=== PATIENT | female | born 1945 | race Caucasian/White ===

== ENCOUNTER 2017-02-12 17:51 | Observation (INO) | payer OTHER ==
[~2017-02-12] VITALS: Ht 144.8 cm; Wt 73.2 kg
[~2017-02-12 17:51] MED LIST: HYDROCODONE
[2017-02-12 17:57] VITALS: BP 165/85
[2017-02-12] MEDS ORDERED: ASPIRIN 81 MG TAB.CHEW PO ONE (18:00)
--- NOTE | 2017-02-12 18:05 | NUR ---
Patient ambulated to bed 03.
--- NOTE | 2017-02-12 18:08 | NUR ---
Dr. Goldstein evaluating patient at bedside.
--- NOTE | 2017-02-12 18:14 | NUR ---
71/F C/O LEFT SIDED ANTERIOR WALL CHEST PAIN RADIATING LEFT SCAPULA AND LUE BURNING PAIN 01/01. DENIES N/V/D; SKIN IS PINK/WARM/DRY; AAOX4 WITH EVEN AND STEADY GAIT; LUNGS CLEAR BL; HR EVEN AND REGULAR; PT DENIES ANY FEVER, SOB, OR COUGH AT THIS TIME; VSS; PATIENT POSITIONED FOR COMFORT; HOB ELEVATED; BEDRAILS UP X2; BED DOWN. ER MD MADE AWARE OF PT STATUS.
[2017-02-12 18:17] LABS: BASOPHILS # (AUTO) 0.1 K/uL (0.00-0.22); BASOPHILS % (AUTO) 1.8 % (0.0-2.0); EOSINOPHILS # (AUTO) 0.3 K/uL (0-0.4); EOSINOPHILS % (AUTO) 3.2 % (0.0-4.0); HEMATOCRIT 36.7 % (36-48); HEMOGLOBIN 11.9 g/dL (12.0-16.0); LYMPHOCYTES # (AUTO) 2.3 K/uL (2.5-16.5); LYMPHOCYTES % (AUTO) 29.2 % (20.5-51.1); MEAN CORPUSCULAR HEMOGLOBIN 29 pg (27-31); MEAN CORPUSCULAR HGB CONC 33 g/dL (33-37); MEAN CORPUSCULAR VOLUME 90 fL (80-94); MONOCYTES # (AUTO) 0.5 K/uL (0.8-1.0); MONOCYTES % (AUTO) 5.9 % (1.7-9.3); NEUTROPHILS # (AUTO) 4.7 K/uL (1.8-7.7); NEUTROPHILS % (AUTO) 59.9 % (42.2-75.2); PLATELET COUNT (AUTO) 345 K/uL (140-450); RED BLOOD CELL COUNT(AUTO) 4.09 MIL/uL (4.20-5.40); RED CELL DISTRIBUTION WIDTH 13.9 % (11.6-13.7); WHITE BLOOD COUNT (AUTO) 7.9 K/uL (4.8-10.8)
--- NOTE | 2017-02-12 18:22 | NUR ---
XRAY at bedside.
[2017-02-12 18:30] LABS: ANION GAP 11.6 (8-16); CALCIUM 9.1 mg/dL (8.5-10.1); CARBON DIOXIDE 29.1 mmol/L (21-32); CREATININE 0.9 mg/dL (0.6-1.3); POTASSIUM 4.7 mmol/L (3.5-5.1)
[2017-02-12 18:36] LABS: ALBUMIN 4.2 g/dL (3.4-5.0); TOTAL BILIRUBIN 0.2 mg/dL (0.0-1.0); TOTAL PROTEIN, SERUM 7.7 g/dL (6.4-8.2)
[2017-02-12 18:38] LABS: PARTIAL THROMBOPLASTIN TIME 25.2 secs (22-35.6); PROTHROMBIN TIME 10.4 secs (10.8-13.4)
[2017-02-12] MEDS ORDERED: MORPHINE SULFATE 4 MG/ML SYR IVP ONE (18:45)
[2017-02-12] MEDS ORDERED: SIMV20TA1 PO (19:04)
[2017-02-12] MEDS ORDERED: TRAZ-286 PO (19:04)
[2017-02-12] MEDS ORDERED: METF500T64 PO (19:04)
[2017-02-12] MEDS ORDERED: ASPI-1379 PO (19:04)
[2017-02-12] MEDS ORDERED: TEJOCOTE ROOT (19:04)
[2017-02-12] MEDS ORDERED: [UNRECOGNIZED DRUG - CODE] PO (19:04)
[2017-02-12] MEDS ORDERED: ONDANSETRON 4 MG/2 ML VIAL IVP PRN (19:10)
[2017-02-12] MEDS ORDERED: INSULIN LISPRO SLIDING SCALE 100 UNITS/ML VIAL SUBQ PRN (19:10)
[2017-02-12] MEDS ORDERED: ACETAMINOPHEN 325 MG TAB PO PRN (19:10)
[2017-02-12] MEDS ORDERED: NITROGLYCERIN 0.4 MG TAB SL ONE (19:10)
--- NOTE | 2017-02-12 19:16 | NUR ---
GOT REPORT ETHEL CRAIG RN. PT. RESTING IN BED, NO S/SX OF DISTRESS AT THIS TIME.
--- NOTE | 2017-02-12 19:16 | NUR ---
Pt report given to PIN. Transfer of care at this time.
--- NOTE | 2017-02-12 19:20 | NUR ---
Patient will be admitted to care of [facility]. Admited to TELEMETRY. Will go to [id number]. Belongings list completed. Report to MARY HILL, REPORT GIVEN BY MARY CRAIG.
[2017-02-12 19:25] VITALS: BP 133/75
--- NOTE | 2017-02-12 19:25 | NUR ---
ADMITTED A 71 YEARS OLD FEMALE TO THE TELE UNIT. PATIENT RESTING IN BED, AWAKE ALERT ORIENTED X4. NO S/S OF ACUTE DISTRESS NOTED, DENIES PAIN AT THIS TIME. TELE MONITOR PLACED ON PATIENT. IV SITE CLEAN AND DRY, FLUSHED WITH NS, PATENT. PLAN OF ACRE DISCUSSED, VERBALIZED UNDERSTANDING. CALL LIGHT WITHIN REACH, SAFETY MEASURE ENSURED, WILL CONTINUE TO MONITOR.
--- NOTE | 2017-02-12 19:58 | NUR ---
NITROSTAT 0.4MG NOT ADMINISTERED, PATIENT DENIES CHEST PAIN. MADE CHARGE NURSE AWARE.
[2017-02-12] MEDS ORDERED: DEXTROSE 50% 50 ML SYR IVP PRN (20:15)
--- NOTE | 2017-02-12 20:22 | NUR ---
PM MEDICATIONS GIVEN, PATIENT TOLERATED WELL.
[2017-02-12] MEDS ORDERED: METOPROLOL 25 MG TAB PO ONE (21:00)
[2017-02-12] MEDS ORDERED: SIMVASTATIN 20 MG TAB PO SCH (21:00)
[2017-02-12] MEDS: BLOOD GLUCOSE MONITORING 1 DEV DEV FS SCH ×2 (21:00→21:43)
--- NOTE | 2017-02-12 21:51 | NUR ---
PATIENT REFUSED HUMALOG, EDUCATION PROVIDED TO THE PATIENT, PATIENT STILL REFUSED.
[2017-02-12] MEDS: MORPHINE SULFATE 2 MG/ML SYR IVP PRN (23:02)
[2017-02-13] VITALS: BP 132/75
--- NOTE | 2017-02-13 00:55 | NUR ---
[employer] SALES REPRESENTATIVE REPORTED PATIENT HEART RATE 41 BPM AT 0035. ASSESSED PATIENT AT BEDSIDE, NO S/S OF CHANGE OF CONSCIOUSNESS, NO CHANGE OF MENTAL STATUS NOTED, BP 131/70, HR 55. PATIENT DENIES DIZZINESS. APPLIED SCD ON BOTH LOWER EXTREMITIES. WILL CONTINUE TO MONITOR.
--- NOTE | 2017-02-13 02:11 | NUR ---
PATIENT ASLEEP IN BED, NO S/S OF ACUTE DISTRESS NOTED, RESPIRATION EVEN AND UNLABORED, WILL CONTINUE TO MONITOR
[2017-02-13 02:16] LABS: HEMATOCRIT 35.9 % (36-48); HEMOGLOBIN 11.7 g/dL (12.0-16.0); MEAN CORPUSCULAR HEMOGLOBIN 29 pg (27-31); MEAN CORPUSCULAR HGB CONC 33 g/dL (33-37); MEAN CORPUSCULAR VOLUME 90 fL (80-94); PLATELET COUNT (AUTO) 321 K/uL (140-450); RED BLOOD CELL COUNT(AUTO) 3.98 MIL/uL (4.20-5.40); WHITE BLOOD COUNT (AUTO) 7.6 K/uL (4.8-10.8)
[2017-02-13 02:26] LABS: ANION GAP 10.7 (8-16); CALCIUM 9.1 mg/dL (8.5-10.1); CARBON DIOXIDE 30.3 mmol/L (21-32); CREATININE 0.8 mg/dL (0.6-1.3)
[2017-02-13 02:36] LABS: EOSINOPHILS % (MANUAL) 4 % (0-4); LYMPHOCYTES % (MANUAL) 27 % (20-46); MONOCYTES % (MANUAL) 4 % (5-12); NEUTROPHILS % (MANUAL) 65 (43-65)
[2017-02-13 02:40] LABS: CREATINE KINASE MB 0.9 ng/mL (0-3.6)
[2017-02-13 04:00] VITALS: BP 135/63
--- NOTE | 2017-02-13 04:55 | NUR ---
MADE ROUNDS, PATIENT ASLEEP IN BED, NO S/S OF ACUTE DISTRESS NOTED, CALL LIGHT WITHIN REACH, SAFETY MEASURE ENSURED, WILL CONTINUE TO MONITOR.
[2017-02-13] MEDS: BLOOD GLUCOSE MONITORING 1 DEV DEV FS SCH ×2 (06:59→11:31)
--- NOTE | 2017-02-13 07:25 | NUR ---
ENDORSED PLAN OF CARE TO DAY RN. PATIENT IS IN STABLE CONDITION.
--- NOTE | 2017-02-13 07:30 | NUR ---
RECEIVED REPORT FROM NIGHT NURSE, PT IS AAOX4, ON ROOM AIR, IV TO LEFT AC 20G SALINE LOCK PATENT AND INTACT. SKIN INTACT, PT STATES NO CHEST PAIN AT THIS TIME. INITIAL ASSESSMENT COMPLETED, REVIEWED PLAN OF ACRE WITH PT, PT VERBALIZED UNDERSTANDING, ALL SAFETY PRECAUTIONS MET, ALL NEEDS MET. WILL CONTINUE TO MONITOR.
[2017-02-13 07:49] VITALS: BP 134/75
[2017-02-13] MEDS ORDERED: metFORMIN 500 MG TAB PO SCH (08:00)
--- NOTE | 2017-02-13 08:06 | NUR ---
DUE MEDICATIONS GIVEN, PT TOLERATED WELL, PT C/O PAIN 410, MEDICATED PER MD ORDERS. ALL NEEDS MMET. WILL CONTINUE TO MONITOR.
[2017-02-13] MEDS: MORPHINE SULFATE 2 MG/ML SYR IVP PRN (08:10)
[2017-02-13] MEDS ORDERED: ASPIRIN 325 MG TAB PO SCH (09:00)
[2017-02-13] MEDS ORDERED: LISINOPRIL 5 MG TAB PO SCH (09:00)
--- NOTE | 2017-02-13 09:00 | NUR ---
TEMP OF 100.6, PLACED ICE PACKS ON ARMPIT. WILL REASSESS TEMP.
--- NOTE | 2017-02-13 09:41 | NUR ---
PATIENT HAS BEEN SCREENED AND CATEGORIZED MODERATE NUTRITION RISK. PATIENT WILL BE SEEN WITHIN 3-5 DAYS OF ADMISSION. 02/15/17-02/17/[address]
[2017-02-13 10:50] LABS: CREATINE KINASE MB 0.6 ng/mL (0-3.6)
--- NOTE | 2017-02-13 11:32 | NUR ---
PT CURRENTLY RESTING IN BED, PT STATES NO SOB NOR CHEST PAIN. ALL NEEDS MET. WILL CONTINUE TO MONITOR.
[2017-02-13 12:00] VITALS: BP 137/46
[2017-02-13 13:07] LABS: CHOL/HDL RATIO 2.3 (1-4.5)
--- NOTE | 2017-02-13 15:20 | NUR ---
DISCUSSED DISCHARGE PLAN WITH PT, PT VERBALIZED UNDERSTANDING
--- NOTE | 2017-02-13 15:38 | NUR ---
PT SIGNED ALL DISCHARGE PAPERWORK, DISCHARGE EDUCATION GIVEN, FOLLOW UP INFORMATION GIVEN, PT VERBALIZED UNDERSTANDING, ALL PERSONAL BELONGING WITH PT, IV REMOVED TIP INTACT. ID BANDS REMOVED. FAMILY IN TO HAND TOOL FILER PT.
--- NOTE | 2017-02-13 15:44 | NUR ---
PT WAS WALKED TO FRONT LOBBY IN STABLE CONDITION.
--- NOTE | 2017-02-15 07:32 | NUR ---
RETRO ER REPORT, H&P AND CONSULT FAXED TO [facility] [phone] PHONE [facility] [phone] OP 1
== END 2017-02-13 15:45 | disposition home or self-care (01) ==
LOC: MED 17:51 → INTOOBSV 19:24 → MTU 19:24
PROVIDERS: ADMIT Hospitalist; ATTEND Hospitalist
DX: R07.9 Chest pain, unspecified (principal); E11.9 Type 2 diabetes mellitus without complications
CPT/HCPCS: 36415; 71010; 80048; 80053; 80061; 82550; 82553; 82948; 83880; 84484; 85025; 85379; 85610; 85730; 87081; 93005; 96374; 99285; G0378; J2270; Q0092; 96372; 96376

== ENCOUNTER 2019-02-20 02:26 | Emergency (ER) | payer OTHER ==
[~2019-02-20] VITALS: Ht 147.3 cm; Wt 64.9 kg
[~2019-02-20 02:26] MED LIST changes: +ASPI-1379 PO; +GLU500 PO; +SIMV20TA1 PO; +TEJOCOTE ROOT; +TRAZ-466 PO; +[UNRECOGNIZED DRUG - CODE] PO
[2019-02-20 02:42] VITALS: BP 177/78
--- NOTE | 2019-02-20 02:42 | NUR ---
PT AMBULATED TO BED
--- NOTE | 2019-02-20 03:15 | NUR ---
73 Y/O FEMALE PRESENTS TO ED, C/O RIGHT SIDE ABDOMINAL PRESSURE PAIN, 03/03. PT STATES, PAIN STARTED ON DAY NIGHT, PT WOKE UP WITH URGENCY TO VOID WITH BURNING SENSATION. PT HAS ACTIVE BOWEL SOUNDS ON ALL QUADRANTS. PAIN ON PALPATION ON RIGHT SIDE OF ABDOMEN. NO INCONTINENCE. HX DM. PT VSS. DR DASILVA AWARE. WILL CONTINUE TO MONITOR.
[2019-02-20 03:20] LABS: APPEARANCE,URINE CLOUDY (CLEAR); BILIRUBIN,URINE NEGATIVE (NEGATIVE); BLOOD, URINE 3+ (NEGATIVE); COLOR,URINE YELLOW (YELLOW); LEUKOCYTE ESTERASE ,URINE 3+ (NEGATIVE); NITRITE, URINE NEGATIVE (NEGATIVE); UGLUCOSE NEGATIVE (NEGATIVE)
[2019-02-20 03:20] LABS: BASOPHILS % (AUTO) 0.2 % (0.0-2.0); EOSINOPHILS # (AUTO) 0.2 K/uL (0-0.4); EOSINOPHILS % (AUTO) 1.8 % (0.0-4.0); HEMATOCRIT 34.7 % (36-48); HEMOGLOBIN 11.4 g/dL (12.0-16.0); LYMPHOCYTES # (AUTO) 2.2 K/uL (2.5-16.5); LYMPHOCYTES % (AUTO) 19.6 % (20.5-51.1); MEAN CORPUSCULAR HEMOGLOBIN 29 pg (27-31); MEAN CORPUSCULAR HGB CONC 33 g/dL (33-37); MONOCYTES # (AUTO) 0.8 K/uL (0.8-1.0); MONOCYTES % (AUTO) 7.2 % (1.7-9.3); NEUTROPHILS # (AUTO) 7.9 K/uL (1.8-7.7); NEUTROPHILS % (AUTO) 71.2 % (42.2-75.2); PLATELET COUNT (AUTO) 297 K/uL (140-450); RED BLOOD CELL COUNT(AUTO) 3.89 MIL/uL (4.20-5.40); RED CELL DISTRIBUTION WIDTH 15.1 % (11.6-13.7); WHITE BLOOD COUNT (AUTO) 11.1 K/uL (4.8-10.8)
[2019-02-20] MEDS ORDERED: MORPHINE SULFATE 4 MG/ML SYR IVP ONE (03:30)
[2019-02-20 03:41] LABS: ANION GAP 11.9 (8-16); ASPARTATE AMINOTRANSFERASE 15 U/L (15-37); CARBON DIOXIDE 28.2 mmol/L (21-32); CHLORIDE 104 mmol/L (98-107); CREATININE 0.7 mg/dL (0.6-1.3); GLUCOSE 123 mg/dL (74-106); LIPASE 129 U/L (73-393); POTASSIUM 4.1 mmol/L (3.5-5.1); SODIUM SERUM 140 mmol/L (136-145); TOTAL BILIRUBIN 0.2 mg/dL (0.0-1.0); UREA NITROGEN, BLOOD 20 mg/dL (7-18)
[2019-02-20 03:41] LABS: RBC,URINE TOO NUMEROUS TO COUN /HPF (0-5); WBC,URINE TOO MANY TO COUNT /HPF (0-5)
--- NOTE | 2019-02-20 04:29 | NUR ---
PT TAKEN TO CT
[2019-02-20] MEDS ORDERED: cefTRIAXone 1,000 MG VIAL ONE (04:35)
--- NOTE | 2019-02-20 05:15 | NUR ---
PT AWAKE, LAYING ON BED. C/O OF RIGHT SIDE ABDOMINAL PAIN, 10/01. DR. DASILVA AWARE. WILL CONTINUE TO MONITOR.
[2019-02-20 05:45] VITALS: BP 165/71
--- NOTE | 2019-02-20 05:45 | NUR ---
PT DISCHARGED WITH PAPERWORK. RX CIPROFLOXACIN. EDUCATED PT REGARDING MEDICATIONS AND SIDE EFFECTS. EDUCATED PT REGARDING DISCHARGE DIAGNOSIS. PT VERBALIZED UNDETRSTADING OF TEACHING. TOLD PT TO FOLLOW UP WITH PCP AND WHEN TO RETURN TO ED. PT VSS. ALL QUESTIONS ANSWERED.
== END 2019-02-20 05:45 | disposition home or self-care (01) ==
LOC: MED 02:26
DX: N12 Tubulo-interstitial nephritis, not specified as acute or chronic (principal); E11.9 Type 2 diabetes mellitus without complications; Z79.84 Long term (current) use of oral hypoglycemic drugs; Z79.899 Other long term (current) drug therapy
CPT/HCPCS: 36415; 74177; 80053; 81001; 83690; 85025; 87086; 96365; 96375; 99284; J0696; J2270; Q9967